=== PATIENT | male | born 1995 | race Caucasian/White ===

== ENCOUNTER 2016-10-23 16:54 | Emergency (ER) | payer OTHER ==
[2016-10-23] MEDS ORDERED: cefTRIAXone SODIUM 1 GM VIAL ONE (17:35)
[2016-10-23] MEDS ORDERED: cefTRIAXone SODIUM 1 GM VIAL IM ONE (17:35)
[2016-10-23] MEDS ORDERED: Lidocaine 1% 5ml(IM or SUTURE)(PAIN CLINIC) IJ ONE (17:35)
--- NOTE | 2016-10-23 18:08 | ED Physician Documentation ---
Upper Respiratory Symptoms - HISTORIAN Historian: patient - HPI Stated Complaint: cough Chief Complaint: Cough/ Upper Respiratory Additional Information: prod. cough Onset: days ago (7) Duration: sudden-Onset Context: denies: recent foreign travel, insect bite(s), tick(s), recent chemotherapy, multiple patients, same sx Severity: moderate Associated Symptoms: fever, sinus drainage, productive cough Worsened by Deep Breath: Yes Further Comments: no - ROS CONST/EYES: denies: weakness, eye redness, eye itching CVS/RESP: other (anterior chest wall pain) LYMPH: denies: leg swelling, rash, swollen glands, ankle swelling GI/: none NEURO/PSYCH: denies: fainting, dizziness, confusion, anxiety, depression MS/SKIN: denies: joint pain, muscle aches - PAST HX Lung Disease: asthma PE Risk Factors: none Surgeries/Procedures: other (ortho) Immunizations: referred to PCP Allergies/Adverse Reactions: Allergies Allergy/AdvReac Type Severity Reaction Status Date / Time No Known Allergies Allergy Verified 07/08/16 18:40 Home Medications: Ambulatory Orders Medication Instructions Recorded NK [NK] 10/23/16 - SOCIAL HX Smoking History: non-smoker Alcohol Use: heavy Drug Use: none - FAMILY HX Family History: no significant history - VITAL SIGNS Vital Signs: Vital Signs Temp Pulse Resp BP Pulse Ox 98.0 F 90 18 136/66 99 10/23/16 18:30 10/23/16 18:30 10/23/16 18:30 10/23/16 18:30 10/23/16 18:30 - REVIEWED ASSESSMENTS Nursing Assessment Reviewed: Yes Vitals Reviewed: Yes Progress - Results/Orders Results/Orders: no testing ordered - Progress Progress: pt, given 1 gram Rocephin im in er Critical Care Note - Critical Care Note Total Time (mins): 0 ED Results Lab/Radiology - Lab Results Lab Results: none ordered - Radiology Radiology Impressions: none ordered - Orders Orders: ED Orders Category Date Time Status Lidocaine 1% 5ml(IM or SUTURE) [Xylocaine] Med 10/23/16 17:35 Discontinued 50 mg IJ NOW ONE cefTRIAXone SODIUM [Rocephin] Med 10/23/16 17:35 Discontinued 1 gm .ROUTE .STK-MED ONE cefTRIAXone SODIUM [Rocephin] Med 10/23/16 17:35 Discontinued 1 gm IM NOW ONE Upper Respiratory Symptoms - EXAM General Appearance: alert, moderate distress EENT: eyes nml inspection, nml ENT inspection, lids & conjunct. nml, PERRL, ear nml. No: pain over sinuses, TM erythema, pharyngeal erythema Neck: normal inspection, thyroid normal, supple Respiratory: speaks full sentences, wheezes, other (insp. pain anterior chest). No: stridor Abdomen: non-tender, no organomegaly, nml bowel sounds, no distention CVS: reg rate & rhythm, heart sounds normal, equal pulses Skin: color nml, no rash, warm,dry Extremities: non-tender, normal range of motion, no evidence of injury, no edema Neuro/Psych: oriented x3, neuro intact, mood/affect nml Discharge Clincal Impression: Bronchitis Referrals: Primary Doctor,No [Primary Care Provider] - 2 Days Home Medications: Ambulatory Orders NK [NK] 10/23/16 Comments: discharged in stable condition with scripts for keflex and pro air and robitussin Condition: Stable Disposition: 01 HOME, SELF-CARE Decision to Admit: NO Decision Time: 18:00
[2016-10-23 18:32] VITALS: BP 136/66
== END 2016-10-23 18:00 | disposition home or self-care (01) ==
LOC: ED 16:54
DX: J20.9 Acute bronchitis, unspecified (principal)
CPT/HCPCS: J0696 ×2; 96372; 99283